=== PATIENT | female | born 1960 | race Caucasian/White ===

== ENCOUNTER 2020-06-24 17:45 | Outpatient (CLI) | payer BC, SELFPAY | END 2020-06-24 17:46 | disposition home or self-care (01) | LOC: ANHCOVIDVC 17:45 | PROVIDERS: PCP Family Medicine | DX: Z23 Encounter for immunization (principal) | CPT/HCPCS: 0001A; 91300 ==

== ENCOUNTER 2020-07-15 17:40 | Outpatient (CLI) | payer BC, SELFPAY | END 2020-07-15 17:41 | disposition home or self-care (01) | LOC: ANHCOVIDVC 17:40 | PROVIDERS: PCP Family Medicine | DX: Z23 Encounter for immunization (principal) | CPT/HCPCS: 0002A; 91300 ==

== ENCOUNTER → 2021-08-13 12:49 | Outpatient (CLI) | payer BC, SELFPAY ==
--- NOTE | ~2021-08-13 | MM_ITS ---
EXAMINATION: MM screening meera BI w mikayla HISTORY: Screening mammogram TECHNIQUE: Craniocaudal and mediolateral oblique 3-D tomosynthesis images were obtained and synthetic 2-D images were generated. CAD analysis was submitted and interpreted. COMPARISON: 05/08/2019, 04/12/2018, 03/13/2017 bilateral screening mammogram examinations BREAST PARENCHYMAL COMPOSITION: There are scattered areas of fibroglandular density. FINDINGS: There is no evidence of suspicious mass, calcification, or architectural distortion to sugg est malignancy in either breast. There has been no suspicious interval change. IMPRESSION: 1. No mammographic evidence of malignancy. 2. Recommend routine screening mammography in one year. BI-RADS Category 1: Negative Reviewed, dictated and finalized at location A.
== END ==
PROVIDERS: PCP Family Medicine; Visit Provider Obstetrics & Gynecology
DX: Z12.31 Encounter for screening mammogram for malignant neoplasm of breast (principal)
CPT/HCPCS: 77063; 77067

== ENCOUNTER 2022-06-29 11:03 | Outpatient (CLI) | payer BC, SELFPAY ==
--- NOTE | ~2022-06-29 | XR_ITS ---
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 RESULT: Lines, tubes, and devices: None. Lungs and pleura: 8 mm nodular opacity in the right upper lung. Increased right apical pleural thick ening. Emphysematous changes. Cardiomediastinal silhouette: Stable. Other: No acute osseous or upper abdominal finding. IMPRESSION: 8 mm right upper lung pulmonary nodule, recommend low-dose noncontrast CT of the chest for further ev aluation. No acute osseous findings in the left ribs. Reviewed, dictated and finalized at location K. ERCIAL LINES ACCOUNT EXECUTIVE IMPRESSION: 8 mm right upper lung pulmonary nodule, recommend low-dose noncontrast CT of th e chest for further evaluation. No acute osseous findings in the left ribs.
== END 2022-06-29 11:04 ==
LOC: MICIMG 11:05
PROVIDERS: PCP Physician Assistant Medical; Visit Provider Physician Assistant Medical
DX: R07.81 Pleurodynia (principal); R91.1 Solitary pulmonary nodule
CPT/HCPCS: 71101

== ENCOUNTER 2022-07-15 10:54 | Outpatient (CLI) | payer BC, SELFPAY ==
--- NOTE | ~2022-07-15 | CT_ITS ---
EXAMINATION: CT diagnostic chest wo con DATE: 07/15/2022 11:45 INDICATION: Right lung nodule TECHNIQUE: Computed tomography (CT) of the chest was performed without intravenous contrast. The dose -length product (DLP) was 65.66 mGy-cm. Automated exposure control and iterative reconstruction techn ique were employed. COMPARISON: 06/29/2022 FINDINGS: There is scarring in the lung apices. No CT correlate is identified for the right upper lob e nodule questioned on the recent chest radiograph. There is a 3 mm solid nodule in the left upper lo be. There is a 5 mm subsolid nodule of the left upper lobe. The lungs are free of acute opacities. No pathologically enlarged thoracic lymph nodes are identified. The heart size is normal. No pleural ef fusion or pneumothorax. There is mild thoracic spondylosis. IMPRESSION: 1. No suspicious correlate identified for the chest radiographic finding in question. 2. Small left upper lobe nodules requiring no additional follow-up. Reviewed, dictated and finalized at location B. IMPRESSION: 1. No suspicious correlate identified for the chest radiographic finding in que stion. 2. Small left upper lobe nodules requiring no additional follow-up.
== END 2022-07-15 10:55 | disposition home or self-care (01) ==
PROVIDERS: PCP Physician Assistant Medical; Visit Provider Physician Assistant Medical
DX: R91.8 Other nonspecific abnormal finding of lung field (principal)
CPT/HCPCS: 71250

== ENCOUNTER → 2023-01-17 15:18 | Outpatient (CLI) | payer BC, SELFPAY ==
--- NOTE | ~2023-01-17 | MM_ITS ---
EXAMINATION: MM screening meera BI w mikayla HISTORY: Screening mammogram TECHNIQUE: Craniocaudal and mediolateral oblique 3-D tomosynthesis images were obtained and synthetic 2-D images were generated. CAD analysis was submitted and interpreted. COMPARISON: 08/13/2021, 03/08/2020, 04/12/2018 bilateral screening mammogram examinations BREAST PARENCHYMAL COMPOSITION: There are scattered areas of fibroglandular density. FINDINGS: There is no evidence of suspicious mass, calcification, or architectural distortion to sugg est malignancy in either breast. There has been no suspicious interval change. IMPRESSION: 1. No mammographic evidence of malignancy. 2. Recommend routine screening mammography in one year. BI-RADS Category 1: Negative Reviewed, dictated and finalized at location A.
== END ==
PROVIDERS: PCP Obstetrics & Gynecology; Visit Provider Obstetrics & Gynecology
DX: Z12.31 Encounter for screening mammogram for malignant neoplasm of breast (principal)
CPT/HCPCS: 77063; 77067

== ENCOUNTER 2023-06-19 08:30 | Outpatient (CLI) | payer MEDICARE, SELFPAY ==
--- NOTE | ~2023-06-19 | US_ITS ---
Abdominal Sonogram: Real-time sonographic imaging of the abdomen was performed. Clinical History: Left upper quadrant pain Findings: The liver appears normal with no evidence of mass lesion or bile duct dilatation. Main por tremayne vein demonstrates normal direction of flow. The spleen is normal in size without evidence of foca l lesion. The gallbladder is well distended, and pressures gallbladder wall polyps measuring up to 5 mm. The common bile duct measures 4 mm. The visualized pancreas, aorta, and IVC are unremarkable. The right kidney measures 10.6 cm in length and the left kidney measures 10.4 cm. There is no hydron ephrosis or renal calculus. Impression: Gallbladder wall polyps, as above. Reviewed, dictated and finalized at location M. 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
--- NOTE | ~2023-06-19 | XR_ITS ---
Clinical Indication: Chest pain PA and lateral views of the chest: Comparison: 06/12/2018 Findings: The lungs are clear, without evidence of focal consolidation or pleural effusion. Possible COPD. Cardiomediastinal silhouette is within normal limits. Bones and soft tissues are unremarkable. Impression: Clear lungs. Possible COPD. Reviewed, dictated and finalized at location . DOWN Impression: Clear lungs. Possible COPD.
== END 2023-06-19 08:31 ==
PROVIDERS: Visit Provider Physician Assistant Medical
DX: R10.12 Left upper quadrant pain (principal); R07.81 Pleurodynia; K82.4 Cholesterolosis of gallbladder
CPT/HCPCS: 71046; 76700

== ENCOUNTER 2024-01-25 19:55 | Emergency (ER) | payer OTHER, MEDICARE, SELFPAY ==
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
[2024-01-25 20:37] VITALS: BP 178/84; PULSE 88; RESP 14; TEMP 36.4; O2SAT 100
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
== END 2024-01-26 01:29 | disposition home or self-care (01) ==
PROVIDERS: Emergency Provider Physician Assistant; PCP Family Medicine
DX: S49.92XA Unspecified injury of left shoulder and upper arm, initial encounter (principal); M62.830 Muscle spasm of back; V49.40XA Driver injured in collision with unspecified motor vehicles in traffic accident, initial encounter
CPT/HCPCS: 73030; 99283

== ENCOUNTER 2024-01-26 16:35 | Emergency (ER) | payer OTHER, SELFPAY ==
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
[2024-01-26 16:53] VITALS: BP 150/82; PULSE 82; RESP 16; TEMP 36.3; O2SAT 99
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
== END 2024-01-26 17:55 | disposition home or self-care (01) ==
PROVIDERS: Emergency Provider Nurse Practitioner; PCP Family Medicine
DX: M25.561 Pain in right knee (principal)
CPT/HCPCS: 73562; 99213; G0463

== ENCOUNTER 2024-03-08 09:21 | Outpatient (CLI) | payer OTHER, SELFPAY ==
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
== END 2024-03-08 09:22 | disposition home or self-care (01) ==
PROVIDERS: PCP Physician Assistant Medical; Visit Provider Nurse Practitioner Adult Health
DX: M17.11 Unilateral primary osteoarthritis, right knee (principal); M22.41 Chondromalacia patellae, right knee; M77.8 Other enthesopathies, not elsewhere classified; M19.012 Primary osteoarthritis, left shoulder; M75.52 Bursitis of left shoulder; S49.92XA Unspecified injury of left shoulder and upper arm, initial encounter; S89.91XA Unspecified injury of right lower leg, initial encounter; V89.2XXA Person injured in unspecified motor-vehicle accident, traffic, initial encounter
CPT/HCPCS: 73221; 73721

== ENCOUNTER 2024-05-02 15:24 | Outpatient (CLI) | payer MEDICARE, SELFPAY ==
--- NOTE | ~2024-05-02 | MM_ITS ---
EXAMINATION: MM screening meera BI w mikayla HISTORY: Screening TECHNIQUE: Craniocaudal and mediolateral oblique 3-D tomosynthesis images were obtained and synthetic 2-D images were generated. CAD analysis was submitted and interpreted. COMPARISON: Comparison to multiple prior studies sequentially, with oldest reviewed study dated 05/2015. BREAST PARENCHYMAL COMPOSITION: Not dense: There are scattered areas of fibroglandular density. FINDINGS: There is no evidence of suspicious mass, calcification, or architectural distortion to sugg est malignancy in either breast. There has been no suspicious interval change. IMPRESSION: 1. No mammographic evidence of malignancy. 2. Recommend routine screening mammography in one year. BI-RADS Category 1: Negative Reviewed, dictated and finalized at location B. 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
== END 2024-05-02 15:25 | disposition home or self-care (01) ==
PROVIDERS: PCP Physician Assistant Medical; Visit Provider Obstetrics & Gynecology
DX: Z12.31 Encounter for screening mammogram for malignant neoplasm of breast (principal)
CPT/HCPCS: 77063; 77067

== ENCOUNTER 2024-12-24 11:15 | Emergency (ER) | payer OTHER, SELFPAY ==
[2024-12-24 11:30] VITALS: BP 147/77; PULSE 89; RESP 20; TEMP 36.5; O2SAT 100
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
--- OUTSIDE RECORDS SUMMARY | 2024-12-24 11:49 | XMS_ITS | Clinical Summary ---
Author Organization [facility] Address [address] [place] [address] Care Team Providers Care Quitline Counselor Name Role Phone Ashwin Alexis MD Primary Care Provider [phone] Modesta Deal MD Unavailable [phone] Allergies Active Allergy Reactions Criticality Noted Date Comments Azithromycin Other (See comments) Low 07/25/2016 Sulfamethoxazole-Trimethoprim Rash Medium 2013 Rash Medications aspirin 81 mg tablet daily. Active hydroCHLOROthiazide (HYDRODIURIL) 25 mg tablet daily. 07/26/19 17 Active metoprolol XL (TOPROL-XL) 25 mg 24 hr tablet Take by mouth 04/04/20 16 Active clindamycin (CLEOCIN) 300 mg capsule Take 1 capsule (300 mg total) by mouth 3 (three) times a day 08/02/19 24 Active DROXIA capsule 200 mgIndications:Essen tial thrombocythemia (HCC) Take 1 capsule by mouth once daily 30 capsule 11/27/19 24 Active hydroxyurea (HYDREA) 500 mg capsuleIndications: Essential thrombocytosis TAKE 1 CAPSULE BY MOUTH ONCE DAILY AT THE SAME TIME EACH DAY 30 capsule 12/07/19 25 Active Droxia 200 mg capsuleIndications: Essential thrombocythemia (HCC) Take 1 capsule by mouth once daily 30 capsule 12/13/19 25 Active hydroxyurea (HYDREA) 500 mg capsuleIndications: Essential thrombocytosis TAKE 1 CAPSULE BY MOUTH ONCE DAILY AT THE SAME TIME EACH DAY 30 capsule 11/13/19 25 025 Discontinued Droxia 200 mg capsuleIndications: Essential thrombocythemia (HCC) Take 1 capsule by mouth once daily 30 capsule 11/15/19 25 025 Discontinued Active Problems Problem Noted Date Diagnosed Date Long-term use of high-risk medication 05/11/2018 Essential thrombocythemia 07/25/2016 Encounters Date Type Department Care Team Description 10/10/2024 1:15 PM CDT Office Visit [facility] Medicine Hematology [address] [place] [address] [address] [place] [address] Modesta Deal MD Essential thrombocythemia (HCC) 10/10/2024 12:30 PM CDT Lab [facility] [address] [place] [address] [address] [place] [address] Essential thrombocythemia (HCC) 10/10/2024 12:15 PM CDT Lab [facility] Medicine Oncology Lab [address] [place] [address] [address] [place] [address] Essential thrombocythemia (HCC) from Last 3 Months Immunizations Immunization Administration Dates Next Due Flucelvax Influenza Quad 02/29/2020 Social History Tobacco Use Types Packs/Day Years Used Date Smoking Tobacco: Never Smokeless Tobacco: Never Tobacco Cessation:Counseling Given: Not Answered Comments Unknown Sex and Gender Information Value Date Recorded Sex Assigned at Not on file 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 Gender Identity Not on file Sexual Orientation Not on file Obstetrics History Last Filed Vital Signs Vital Sign Reading Time Taken Comments Blood Pressure 145/84 10/10/2024 12:47 PM CDT Pulse 77 10/10/2024 12:47 PM CDT Temperature 36.4 C (97.5 F) 10/10/2024 12:47 PM CDT Respiratory Rate 18 10/10/2024 12:4 7 PM CDT Oxygen Saturation 98% 10/10/2024 12: 47 PM CDT Inhaled Oxygen Concentration - - Weight 49.4 kg (108 lb 12.8 oz) 10/10/2024 12:47 PM CDT PT REFUSED TO TAKE OFF SHOES Height 157.5 cm (5' 2) 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 Body Mass Index 19.9 04/11/2024 12:47 PM 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 Plan of Treatment Health Maintenance Due Date Last Done Comments Breast Cancer Screening-Mammogram 1960 Colon Cancer Screening-Colonoscopy 1960 Depression Screening 1958 Fall Risk Assessment 1958 Hepatitis C Screening 1958 Osteoporosis Screening-Bone Density Scan 1958 DTaP/Tdap/Td Vaccine (1 - Tdap) 1969 Hepatitis B Screening 1976 Pneumococcal vaccine 65+ (1 of 2 - PCV) 1977 Zoster Vaccine (1 of 2) 1977 Well Visit 65+ 2023 Influenza Vaccine (#1) 2024 02/29/2020 Procedures Procedure Name Priority Date/Time Associated Diagnosis Comments DIFFERENTIAL AUTO Routine 10/10/2024 12: 23 PM CDT Essential thrombocythemia (HCC) CBC WITH AUTO DIFFERENTIAL Routine 10/10/2024 12:23 PM CDT Essential thrombocythemia (HCC) RETICULOCYTES Routine 10/10/2024 12:23 PM CDT Essential thrombocythemia (HCC) EGFR Routine 10/10/2024 12:22 PM CDT Essential thrombocythemia (HCC) LACTATE DEHYDROGENASE Routine 10/10/2024 12:22 PM CDT Essential thrombocythemia (HCC) COMPREHENSIVE METABOLIC PANEL Routine 10/10/2024 12:22 PM CDT Essential thrombocythemia (HCC) from Last 3 Months Results * (ABNORMAL) Differential, auto (10/10/2024 12:23 PM CDT) Neutrophil abs 2.74 1.50 - 6.50 K/cumm Comment:Testing performed by : [facility], [address] [place] [phone] Lymphocyte abs 0.70(L) 0.80 - 3.30 K/cumm JT BARON Comment:Testing performed by : [facility], [address] [place] [phone] Monocyte abs 0.29 0.20 - 0.80 K/cumm CERNER [facility] Comment:Testing performed by : [facility], [address] [place] [phone] Eosinophil abs 0.02 0.00 - 0.50 K/cumm C[facility]ER [facility] Comment:Testing performed by : [facility], [address] [place] [phone] Basophil abs 0.03 0.00 - 0.10 K/cumm [facility] Comment:Testing performed by : [facility], [address] [place] [phone] Neutrophil pct 72.6 % [facility] Comment: Interpretive Data Percent cell count reference ranges are not reported, since discordance with absolute values may lead to misinterpretation of CBC data. Current Interpretive Data was last revised on 2017. Testing performed by: [facility], [address] [place] [phone] Lymphocyte pct 18.6 % [facility] Comment: Interpretive Data Percent cell count reference ranges are not reported, since discordance with absolute values may lead to misinterpretation of CBC data. Current Interpretive Data was last revised on 2017. Testing performed by: [facility], [address] [place] [phone] Monocyte pct 7.7 % [facility] Comment: Interpretive Data Percent cell count reference ranges are not reported, since discordance with absolute values may lead to misinterpretation of CBC data. Current Interpretive Data was last revised on 2017. Testing performed by: [facility], [address] [place] [phone] Eosinophil pct 0.4 % [facility] Comment: Interpretive Data Percent cell count reference ranges are not reported, since discordance with absolute values may lead to misinterpretation of CBC data. Current Interpretive Data was last revised on 2017. Testing performed by: [facility], [address] [place] [phone] Basophil pct 0.7 % [facility] Comment: Interpretive Data Percent cell count reference ranges are not reported, since discordance with absolute values may lead to misinterpretation of CBC data. Current Interpretive Data was last revised on 2017. Testing performed by: [facility], [address] [place] [address] Blood 10/10/2024 12:2 3 PM CDT 10/10/2024 12:35 PM CDT Radha Neumann DIE TRIMMER LAB BLOOD ORDERABLES Final Result JT BARON [facility] [place] [address] * (ABNORMAL) CBC with auto differential (10/10/2024 12:23 PM CDT) WBC 3.78(L) 3.80 - 9.90 K/cumm Comment:Testing performed by : [facility], [address] [place] [address] Hgb 12.3 11.9 - 15.5 g/dL CERNER BJ Comment:Testing performed by : [facility], [address] [place] [address] Hct 35.8 35.6 - 45.5 % CERNER BJ Comment:Testing performed by : [facility], [address] [place] [address] Plt 493(H) 150 - 400 K/cumm CERNER BJ Comment:Testing performed by : [facility], [address] [place] [address] MPV 7.2 6.8 - 10.4 fL CERNER BJ Comment:Testing performed by : [facility], [address] [place] [address] RBC 3.16(L) 3.90 - 5.20 M/cumm CERNER BJ Comment:Testing performed by : [facility], [address] [place] [address] MCV 113.1(H) 81.3 - 96.4 fL CERNER BJ Comment:Testing performed by : [facility], [address] [place], [place] [phone] MCH 38.8(H) 27.1 - 33.3 pg JT BARON Comment:Testing performed by : [facility], [address] [place], [place] [phone] MCHC 34.4 32.3 - 35.7 g/dL JT BARON Comment:Testing performed by : [facility], [address] [place], [place] [phone] RDW CV 13.4 11.1 - 14.9 % JT BARON Comment:Testing performed by : [facility], [address] [place], [place] [phone] NRBC abs 0.00 0.00 - 0.01 K/cumm JT BARON Comment:Testing performed by : [facility], [address] [place], [place] [phone] Blood 10/10/2024 12:2 3 PM CDT 10/10/2024 12:35 PM CDT Radha Neumann DIE TRIMMER LAB BLOOD ORDERABLES Final Result Performing Organization Address City/State/[facility] Co de Phone Number JT BARON [facility] [place] [address] * Reticulocyte Count (10/10/2024 12:23 PM CDT) Retics, absolute 35 20 - 100 K/cumm Comment:Testing performed by : [facility], [address] [place], [place] [id number] Retics 1.1 0.5 - 1.8 % JT BARON Comment:Testing performed by : [facility], [address] [place], [place] [id number] Blood 10/10/2024 12:2 3 PM CDT 10/10/2024 12:35 PM CDT Radha Neumann DIE TRIMMER LAB BLOOD ORDERABLES Final Result Performing Organization Address [facility] de Phone Number [facility] [place] [address] * eGFR (10/10/2024 12:22 PM CDT) eGFR 78 >=60 mL/min/1. 73 m2 Comment: Interpretive Data Reference Interval Normal >/= 90 mL/min/1.73m2 Mildly decreased* 60 - 89 mL/min/1.73m2 Mildly to moderately decreased 45 - 59 mL/min/1.73m2 Moderately to severely decreased 30 - 44 mL/min/1.73m2 Severely decreased 15 - 29 mL/min/1.73m2 Kidney Failure < 15 mL/min/1.73m2 *Relative to young adult level Estimated glomerular filtration rate is determined by the 2020 CKD-EPI equation recommended by the National Kidney Foundation (A Unifying Approach to GFR Estimation: Recommendations of the NKF-ASK Task Force on Reassessing the Inclusion of Race in Diagnosing Kidney Disease, JASN 2020). The CKD-EPI equation should not be used for patients with unstable renal function and has not been validated in children and those over 70. Current interpretive data was last reviewed 2021. Blood 10/10/2024 12:2 2 PM CDT 10/10/2024 12:37 PM CDT Radha Neumann NP LAB BLOOD ORDERABLES Final Result Performing Organization Address [facility] de Phone Number [facility] [place] [address] * Lactate dehydrogenase (LD) (10/10/2024 12:22 PM CDT) Lactate dehydrogenase (LDH) 212 100 - 250 Units/L Blood 10/10/2024 12:2 2 PM CDT 10/10/2024 12:37 PM CDT Radha Neumann DIE TRIMMER LAB BLOOD ORDERABLES Final Result JT BARON [facility] [place] [address] * Comprehensive metabolic panel (10/10/2024 12:22 PM CDT) Sodium 139 135 - 145 mmol/L Potassium, pl 3.6 3.3 - 4.9 mmol/L [facility] Chloride 102 97 - 110 mmol/L [facility] CO2 28 22 - 32 mmol/L [facility] Anion gap 9 2 - 15 mmol/L [facility] BUN 10 6 - 25 mg/dL [facility] Creatinine 0.83 0.60 - 1.10 mg/dL [facility] Glucose 86 70 - 199 mg/dL [facility] Comment: Interpretive Data Fasting glucose >/= 126 mg/dl is diagnostic for diabetes. Fasting is defined as no caloric intake for at least 8 hours. Fasting glucose between 100 mg/dl to 125 mg/dl is diagnostic of prediabetes. In a patient with classic symptoms of hyperglycemia or hyperglycemic crisis, a random glucose >/= 200 mg/dl is diagnostic for diabetes. In the absence of unequivocal hyperglycemia, results should be confirmed by repeat testing. The classification and Diagnosis of Diabetes Diabetes Care 2021; 46: S19-S40. Current interpretive data was last revised 2022. Calcium 9.2 8.5 - 10.3 mg/dL [facility] Bilirubin, total 0.4 0.1 - 1.2 mg/dL [facility] Protein, pl 7.0 6.5 - 8.5 g/dL [facility] Albumin 4.3 3.5 - 5.0 g/dL [facility] Alk phos 69 40 - 130 Units/L [facility] ALT 10 7 - 45 Units/L [facility] AST 24 10 - 45 Units/L [facility] Blood 10/10/2024 12:2 2 PM CDT 10/10/2024 12:37 PM CDT Radha Neumann DIE TRIMMER LAB BLOOD ORDERABLES Final Result [facility] [place] [address] from Last 3 Months Insurance [facility] Member Subscriber Plan / Payer (Ef fective 2017-Present) Name:Ronni Frausto Relation to Subscriber:Self Name:RONNI FRAUSTO Payer ID:[id number] (NAIC) Type:[facility] Address: [address] ANTH ACCESS [facility] [employer] [employer] Care Teams Quitline Counselor Relationship Specialty Start Date End Date Ashwin Alexis MD PCP - General Family Medicine 05/15/18 Modesta Deal MD [address] [place] [address] Medical Oncologist/Medical Records Supervisor Hematology 06/21/20
--- OUTSIDE RECORDS SUMMARY | 2024-12-24 11:49 | XMS_ITS | Encounter Summary ---
Author Organization [facility] Address [address] [place] [address] Phone Care Team Providers Care Professional Driver Name Role Phone Ashwin Alexis MD Primary Care Provider [phone] Modesta Deal MD Unavailable [phone] Encounter Details Date Type Department Care Team (Latest Contact Info) Description 05/04/2022 Orders Only [facility] Scanning, Provider Social History Tobacco Use Types Packs/Day Years Used Date Smoking Tobacco: Never Smokeless Tobacco: Never Comments Unknown Sex and Gender Information Value Date Recorded Sex Assigned at Not on file 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 Gender Identity Not on file Sexual Orientation Not on file documented as of this encounter Plan of Treatment Not on file documented as of this encounter Procedures Procedure Name Priority Date/Time Associated Diagnosis Comments SCAN - LABS 05/04/2022 documented in this encounter Results * SCAN - LABS (05/04/2022) us Provider Scanning Final Result documented in this encounter Visit Diagnoses Not on filedocumented in this encounter Care Teams Professional Driver Relationship Specialty Start Date End Date Ashwin Alexis MD PCP - General Family Medicine 05/15/18 Modesta Deal MD [address] [place] [address] Medical Oncologist/Firer Boiler Hematology 06/21/20 documented as of this encounter
== END 2024-12-24 12:02 | disposition short-term general hospital (02) ==
PROVIDERS: PCP Family Medicine
DX: R42 Dizziness and giddiness (principal); M54.2 Cervicalgia; R51.9 Headache, unspecified; V63.6XXA Passenger in heavy transport vehicle injured in collision with car, pick-up truck or van in traffic accident, initial encounter
CPT/HCPCS: 99212; G0463

== ENCOUNTER 2024-12-24 12:52 | Emergency (ER) | payer OTHER, MEDICARE, SELFPAY ==
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
[2024-12-24 12:53] VITALS: BP 150/61; PULSE 100; RESP 18; TEMP 37.3; O2SAT 97
--- OUTSIDE RECORDS SUMMARY | 2024-12-24 13:02 | XMS_ITS | Encounter Summary ---
Author Organization [facility] School of [facility] Address [address] [place] [address] Phone Care Team Providers Care Movie Editor Name Role Phone Ashwin Alexis MD Primary Care Provider [phone] Modesta Deal MD Unavailable [phone] Encounter Details Date Type Department Care Team (Latest Contact Info) Description 05/04/2022 Orders Only [facility] Scanning, Provider Social History Tobacco Use Types Packs/Day Years Used Date Smoking Tobacco: Never Smokeless Tobacco: Never Comments Unknown Sex and Gender Information Value Date Recorded Sex Assigned at Not on file 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
--- OUTSIDE RECORDS SUMMARY | 2024-12-24 13:02 | XMS_ITS | Clinical Summary ---
Author Organization [facility] Address [address] [place] [address] Care Team Providers Care Waste Removalist Name Role Phone Ashwin Alexis MD Primary Care Provider [phone] Modesta Deal MD Unavailable [phone] Allergies Active Allergy Reactions Criticality Noted Date [...] Description 10/10/2024 1:15 PM CDT Office Visit [facility] Medicine Hematology [address] [place] [address] [address] [place] [address] Modesta Deal MD Essential thrombocythemia (HCC) 10/10/2024 12:30 PM CDT Lab [facility] Cancer [place] - Lab Collection [address] [place] [address] [address] [place] [address] Essential thrombocythemia (HCC) 10/10/2024 12:15 PM CDT Lab [facility] Medicine Oncology Lab [address] [place] [address] [address] [place] [address] Essential thrombocythemia (HCC) from Last 3 Months Immunizations Immunization Administration Dates Next Due Flucelvax Influenza Quad 02/29/2020 Social History Tobacco Use Types Packs/Day Years Used Date Smoking Tobacco: Never Smokeless Tobacco: Never Tobacco Cessation:Counseling Given: Not Answered Comments Unknown Sex and Gender Information Value Date Recorded Sex Assigned at Not on file Legal Sex Female 4:06 AM JUDICIAL REPORTER Gender Identity Not on file Sexual Orientation [...] cm (5' 2) 04/11/2024 12:4 7 PM JUDICIAL REPORTER Body Mass Index 19.9 04/11/2024 12:47 PM JUDICIAL REPORTER Plan of Treatment Health Maintenance Due Date [...] - 6.50 K/cumm Comment:Testing performed by : [facility], [address] [place] [phone] Lymphocyte abs 0.70(L) 0.80 - 3.30 K/cumm JT BARON Comment:Testing performed by : [facility], [address] [place] [phone] Monocyte abs 0.29 0.20 - 0.80 K/cumm C[facility]ER [facility] Comment:Testing performed by : [facility], [address] [place] [phone] Eosinophil abs 0.02 0.00 - 0.50 K/cumm [facility] Comment:Testing performed by : [facility], [address] [place] [phone] Basophil abs 0.03 0.00 - 0.10 K/cumm [facility] Comment:Testing performed by : [facility], [address] [place] [phone] Neutrophil pct 72.6 % [facility] Comment: Interpretive Data Percent cell count reference ranges are not reported, since discordance with absolute values may lead to misinterpretation of CBC data. Current Interpretive Data was last revised on 2017. Testing performed by: [facility], [address] [place] [phone] Lymphocyte pct 18.6 % [facility] Comment: Interpretive Data Percent cell count reference ranges are not reported, since discordance with absolute values may lead to misinterpretation of CBC data. Current Interpretive Data was last revised on 2017. Testing performed by: [facility], [address] [place] [phone] Monocyte pct 7.7 % [facility] Comment: Interpretive Data Percent cell count reference ranges are not reported, since discordance with absolute values may lead to misinterpretation of CBC data. Current Interpretive Data was last revised on 2017. Testing performed by: [facility], [address] [place] [phone] Eosinophil pct 0.4 % [facility] Comment: Interpretive Data Percent cell count reference ranges are not reported, since discordance with absolute values may lead to misinterpretation of CBC data. Current Interpretive Data was last revised on 2017. Testing performed by: [facility], [address] [place] [phone] Basophil pct 0.7 % [facility] Comment: Interpretive Data Percent cell count reference ranges are not reported, since discordance with absolute values may lead to misinterpretation of CBC data. Current Interpretive Data was last revised on 2017. Testing performed by: [facility], [address] [place] [address] Blood 10/10/2024 12:2 3 PM CDT 10/10/2024 12:35 PM CDT Radha Neumann OFFICE COORDINATOR RECEPTIONIST LAB BLOOD ORDERABLES Final Result JT BARON [facility] [place] [address] * (ABNORMAL) CBC with auto differential (10/10/2024 12:23 PM CDT) WBC 3.78(L) 3.80 - 9.90 K/cumm Comment:Testing performed by : [facility], [address] [place] [address] Hgb 12.3 11.9 - 15.5 g/dL CERNER BJ Comment:Testing performed by : [facility], [address] [place] [address] Hct 35.8 35.6 - 45.5 % CERNER BJ Comment:Testing performed by : [facility], [address] [place] [address] Plt 493(H) 150 - 400 K/cumm CERNER BJ Comment:Testing performed by : [facility], [address] [place] [address] MPV 7.2 6.8 - 10.4 fL CERNER BJ Comment:Testing performed by : [facility], [address] [place] [address] RBC 3.16(L) 3.90 - 5.20 M/cumm CERNER BJ Comment:Testing performed by : [facility], [address] [place] [address] MCV 113.1(H) 81.3 - 96.4 fL CERNER BJ Comment:Testing performed by : [facility], [address] [place], [place] [phone] MCH 38.8(H) 27.1 - 33.3 pg JT BARON Comment:Testing performed by : [facility], [address] [place], [place] [phone] MCHC 34.4 32.3 - 35.7 g/dL JT BARON Comment:Testing performed by : [facility], [address] [place], [place] [phone] RDW CV 13.4 11.1 - 14.9 % JT BARON Comment:Testing performed by : [facility], [address] [place], [place] [phone] NRBC abs 0.00 0.00 - 0.01 K/cumm JT BARON Comment:Testing performed by : [facility], [address] [place], [place] [phone] Blood 10/10/2024 12:2 3 PM CDT 10/10/2024 12:35 PM CDT Radha Neumann OFFICE COORDINATOR RECEPTIONIST LAB BLOOD ORDERABLES Final Result Performing Organization Address City/State/[facility] Co de Phone Number JT BARON [facility] [place] [address] * Reticulocyte Count (10/10/2024 12:23 PM CDT) Retics, absolute 35 20 - 100 K/cumm Comment:Testing performed by : [facility], [address] [place], [place] [phone] Retics 1.1 0.5 - 1.8 % JT BARON Comment:Testing performed by : [facility], [address] [place], [place] [phone] Blood 10/10/2024 12:2 3 PM CDT 10/10/2024 12:35 PM CDT Radha Neumann OFFICE COORDINATOR RECEPTIONIST LAB BLOOD ORDERABLES Final Result Performing Organization Address [facility] de [facility] Number [facility] [place] [address] * eGFR (10/10/2024 12:22 PM CDT) eGFR [...] BLOOD ORDERABLES Final Result Performing Organization Address [facility] de Phone Number [facility] [place] [address] * Lactate dehydrogenase (LD) (10/10/2024 12:22 PM CDT) Lactate dehydrogenase (LDH) 212 100 - 250 Units/L Blood 10/10/2024 12:2 2 PM CDT 10/10/2024 12:37 PM CDT Radha Neumann OFFICE COORDINATOR RECEPTIONIST LAB BLOOD ORDERABLES Final Result JT BARON [facility] [place] [address] * Comprehensive metabolic panel (10/10/2024 12:22 PM CDT) Sodium 139 135 - 145 mmol/L Potassium, pl 3.6 3.3 - 4.9 mmol/L [facility] Chloride 102 97 - 110 mmol/L [facility] CO2 28 22 - 32 mmol/L [facility] Anion gap 9 2 - 15 mmol/L [facility] BUN 10 6 - 25 mg/dL [facility] Creatinine 0.83 0.60 - 1.10 mg/dL [facility] Glucose 86 70 - 199 mg/dL [facility] Comment: Interpretive Data Fasting glucose >/= 126 [...] 2022. Calcium 9.2 8.5 - 10.3 mg/dL [facility] Bilirubin, total 0.4 0.1 - 1.2 mg/dL [facility] Protein, pl 7.0 6.5 - 8.5 g/dL [facility] Albumin 4.3 3.5 - 5.0 g/dL [facility] Alk phos 69 40 - 130 Units/L [facility] ALT 10 7 - 45 Units/L [facility] AST 24 10 - 45 Units/L [facility] Blood 10/10/2024 12:2 2 PM CDT 10/10/2024 12:37 PM CDT Radha Neumann OFFICE COORDINATOR RECEPTIONIST LAB BLOOD ORDERABLES Final Result JT [facility] [place] [address] from Last 3 Months Insurance [facility] MEDICARE ADVANTAGE [facility] Member Subscriber Plan / Payer (Ef fective 2017-Present) Name:Ronni Frausto Relation to Subscriber:Self Name:RONNI FRAUSTO Payer ID:[id number] (NAIC) Type:[facility] Address: [address] ANTH ACCESS [facility] MEDICARE AD[facility]ANT[facility] Address: [address] [address] [place] [address] Care Teams Waste Removalist Relationship Specialty Start Date End Date Ashwin Alexis MD PCP - General Family Medicine 05/15/18 Modesta Deal MD [address] [place] [address] Medical Oncologist/Loans Officer Hematology 06/21/20
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
[2024-12-24] MEDS: ACETAMINOPHEN 500 MG TABLET 1000 MG PO (15:36)
--- OUTSIDE RECORDS SUMMARY | 2024-12-24 15:50 | XMS_ITS | Encounter Summary ---
Author Organization [facility] of [facility] Address [address] [place] [address] Phone Care Team Providers Care Night Auditor Name Role Phone Ahswin Alexis MD Primary Care Provider [phone] Modesta Deal MD Unavailable [phone] Encounter Details Date Type Department Care Team (Latest Contact Info) Description 05/04/2022 Orders Only [facility] Scanning, Provider Social History Tobacco Use Types Packs/Day Years Used Date Smoking Tobacco: Never Smokeless Tobacco: Never Comments Unknown Sex and Gender Information Value Date Recorded Sex Assigned at Not on file Legal Sex Female 4:06 AM MECHANICAL INTERN Gender Identity Not on file Sexual Orientation [...] on filedocumented in this encounter Care Teams Night Auditor Relationship Specialty Start Date End Date Ashwin Alexis MD PCP - General Family Medicine 05/15/18 Modesta Deal MD [address] [place] [address] Medical Oncologist/Weatherization Coordinator Hematology 06/21/20 documented as of this encounter
--- OUTSIDE RECORDS SUMMARY | 2024-12-24 15:50 | XMS_ITS | Clinical Summary ---
Author Organization [facility] Address [address] [place] [address] Care Team Providers Care Water Service Dispatcher Name Role Phone Ashwin Alexis MD Primary Care Provider [phone] Modesta Deal MD Unavailable [phone] Allergies Active Allergy Reactions Criticality Noted Date [...] Description 10/10/2024 1:15 PM CDT Office Visit [facility] Medicine Hematology [address] [place] [address] [address] [place] [address] Modesta Deal MD Essential thrombocythemia (HCC) 10/10/2024 12:30 PM CDT Lab [facility] Cancer [place] - Lab Collection [address] [place] [address] 6 [place] [address] Essential thrombocythemia (HCC) 10/10/2024 12:15 PM CDT Lab [facility] Medicine Oncology Lab [address] [place] [address] 6 [place] [address] Essential thrombocythemia (HCC) from Last 3 Months Immunizations Immunization Administration Dates Next Due Flucelvax Influenza Quad 02/29/2020 Social History Tobacco Use Types Packs/Day Years Used Date Smoking Tobacco: Never Smokeless Tobacco: Never Tobacco Cessation:Counseling Given: Not Answered Comments Unknown Sex and Gender Information Value Date Recorded Sex Assigned at Not on file Legal Sex Female 4:06 AM ENGLISH PROFESSOR Gender Identity Not on file Sexual Orientation [...] cm (5' 2) 04/11/2024 12:4 7 PM ENGLISH PROFESSOR Body Mass Index 19.9 04/11/2024 12:47 PM ENGLISH PROFESSOR Plan of Treatment Health Maintenance Due Date [...] - 6.50 K/cumm Comment:Testing performed by : [facility]e [facility], [address] [place] [phone] Lymphocyte abs 0.70(L) 0.80 - 3.30 K/cumm JT BARON Comment:Testing performed by : [facility], [address] [place] [phone] Monocyte abs 0.29 0.20 - 0.80 K/cumm [facility] Comment:Testing performed by : [facility], [address] [place] [phone] Eosinophil abs 0.02 0.00 - 0.50 K/cumm [facility] Comment:Testing performed by : [facility], [address] [place] [phone] Basophil abs 0.03 0.00 - 0.10 K/cumm [facility] Comment:Testing performed by : [facility], [address] [place] [phone] Neutrophil pct 72.6 % [facility] Comment: Interpretive Data Percent cell count reference ranges are not reported, since discordance with absolute values may lead to misinterpretation of CBC data. Current Interpretive Data was last revised on 2017. Testing performed by: [facility], [address] [place] [phone] Lymphocyte pct 18.6 % [facility] Comment: Interpretive Data Percent cell count reference ranges are not reported, since discordance with absolute values may lead to misinterpretation of CBC data. Current Interpretive Data was last revised on 2017. Testing performed by: [facility], [address] [place] [phone] Monocyte pct 7.7 % [facility] Comment: Interpretive Data Percent cell count reference ranges are not reported, since discordance with absolute values may lead to misinterpretation of CBC data. Current Interpretive Data was last revised on 2017. Testing performed by: [facility], [address] [place] [phone] Eosinophil pct 0.4 % [facility] Comment: Interpretive Data Percent cell count reference ranges are not reported, since discordance with absolute values may lead to misinterpretation of CBC data. Current Interpretive Data was last revised on 2017. Testing performed by: [facility], [address] [place] [phone] Basophil pct 0.7 % [facility] Comment: Interpretive Data Percent cell count reference ranges are not reported, since discordance with absolute values may lead to misinterpretation of CBC data. Current Interpretive Data was last revised on 2017. Testing performed by: [facility], [address] [place] [address] Blood 10/10/2024 12:2 3 PM CDT 10/10/2024 12:35 PM CDT Radha Neumann RN CCU LAB BLOOD ORDERABLES Final Result JT BARON [facility] [place] [address] * (ABNORMAL) CBC with auto differential (10/10/2024 12:23 PM CDT) WBC 3.78(L) 3.80 - 9.90 K/cumm Comment:Testing performed by : [facility], [address] [place] [address] Hgb 12.3 11.9 - 15.5 g/dL CERNER [facility]J Comment:Testing performed by : [facility], [address] [place] [address] Hct 35.8 35.6 - 45.5 % CERNER BJ Comment:Testing performed by : [facility], [address] [place] [address] Plt 493(H) 150 - 400 K/cumm CERNER BJ Comment:Testing performed by : [facility], [address] [place] [address] MPV 7.2 6.8 - 10.4 fL CERNER BJ Comment:Testing performed by : [facility], [address] [place] [address] RBC 3.16(L) 3.90 - 5.20 M/cumm CERNER BJ Comment:Testing performed by : [facility], [address] [place] [address] MCV 113.1(H) 81.3 - 96.4 fL CERNER BJ Comment:Testing performed by : [facility], [address] [place], [place] [phone] MCH 38.8(H) 27.1 - 33.3 pg JT BARON Comment:Testing performed by : [facility], [address] [place], [place] [phone] MCHC 34.4 32.3 - 35.7 g/dL JT BARON Comment:Testing performed by : [facility], [address] [place], [place] [phone] RDW CV 13.4 11.1 - 14.9 % JT BARON Comment:Testing performed by : [facility], [address] [place], [place] [phone] NRBC abs 0.00 0.00 - 0.01 K/cumm JT BARON Comment:Testing performed by : [facility], [address] [place], [place] [phone] Blood 10/10/2024 12:2 3 PM CDT 10/10/2024 12:35 PM CDT Radha Neumann RN CCU LAB BLOOD ORDERABLES Final Result Performing Organization Address City/State/[facility] Co de Phone Number JT BARON [facility] [place] [address] * Reticulocyte Count (10/10/2024 12:23 PM CDT) Retics, absolute 35 20 - 100 K/cumm Comment:Testing performed by : [facility], [address] [place], [place] [phone] Retics 1.1 0.5 - 1.8 % JT BARON Comment:Testing performed by : [facility], [address] [place], [place] [phone] Blood 10/10/2024 12:2 3 PM CDT 10/10/2024 12:35 PM CDT Radha Neumann RN CCU LAB BLOOD ORDERABLES Final Result Performing Organization Address [facility] de Phone Number [facility] [place] [address] * eGFR (10/10/2024 12:22 PM CDT) eGFR [...] BLOOD ORDERABLES Final Result Performing Organization Address [facility] de Phone Number [facility] [place] [address] * Lactate dehydrogenase (LD) (10/10/2024 12:22 PM CDT) Lactate dehydrogenase (LDH) 212 100 - 250 Units/L Blood 10/10/2024 12:2 2 PM CDT 10/10/2024 12:37 PM CDT Radha Neumann RN CCU LAB BLOOD ORDERABLES Final Result JT BARON [facility] [place] [address] * Comprehensive metabolic panel (10/10/2024 12:22 PM [...] CDT 10/10/2024 12:37 PM CDT Radha Neumann RN CCU LAB BLOOD ORDERABLES Final Result [facility] [place] [address] from Last 3 Months Insurance [facility] MEDICARE ADVANTAGE [facility] Address[facility] [address] [employer] [facility] Address: [address] [place] [address] [facility] MEDICARE AD[facility]ANTAGE [facility] Address: [address] [address] [place] [address] Care Teams Water Service Dispatcher Relationship Specialty Start Date End Date Ashwin Alexis MD PCP - General Family Medicine 05/15/18 Modesta Deal MD [address] [place] [address] Medical Oncologist/Dietary Director Hematology 06/21/20
[2024-12-24 16:10] VITALS: BP 150/119; PULSE 84; RESP 18; TEMP 36.8; O2SAT 99
== END 2024-12-24 16:10 | disposition home or self-care (01) ==
LOC: ANHED 15:48
PROVIDERS: Emergency Provider Emergency Medicine; PCP Family Medicine
DX: S89.91XA Unspecified injury of right lower leg, initial encounter (principal); V89.2XXA Person injured in unspecified motor-vehicle accident, traffic, initial encounter; Z79.82 Long term (current) use of aspirin; Z82.49 Family history of ischemic heart disease and other diseases of the circulatory system
CPT/HCPCS: 70450; 72100; 72125; 73030; 73564; 99284; A9270

== ENCOUNTER 2024-12-26 13:57 | Outpatient (CLI) | payer OTHER, MEDICARE, SELFPAY ==
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
--- OUTSIDE RECORDS SUMMARY | 2024-12-26 14:16 | XMS_ITS | Encounter Summary ---
Author Organization [facility] Address [address] [facility] [place] [address] Phone Care Team Providers Care Reel And Rewinder Operator Name Role Phone Ashwin Alexis MD Primary Care Provider [phone] Modesta Deal MD Unavailable [phone] Encounter Details Date Type Department Care Team (Latest Contact Info) Description 05/04/2022 Orders Only [facility] Scanning, Provider Social History Tobacco Use Types Packs/Day Years Used Date Smoking Tobacco: Never Smokeless Tobacco: Never Comments Unknown Sex and Gender Information Value Date Recorded Sex Assigned at Not on file Legal Sex Female 4:06 AM WELL HEAD PUMPER Gender Identity Not on file Sexual Orientation [...] on filedocumented in this encounter Care Teams Reel And Rewinder Operator Relationship Specialty Start Date End Date Ashwin Alexis MD PCP - General Family Medicine 05/15/18 Modesta Deal MD [address] [place] [address] Medical Oncologist/Sheet Metal Journeyman Hematology 06/21/20 documented as of this encounter
--- OUTSIDE RECORDS SUMMARY | 2024-12-26 14:16 | XMS_ITS | Clinical Summary ---
Author Organization [facility] Address [address] [place] [address] Phone Care Team Providers Care Athletic Gear Custodian Name Role Phone Unavailable Primary Care Provider Unavailabl e Medications metoprolol succinate XL (TOPROL-XL) 25 MG 24 hr tablet 1 tablet (25 mg) orally daily 0 04/04/2016 Active atorvastatin (LIPITOR) 20 MG tablet 1 tablet (20 mg) orally daily 0 04/04/2016 Active aspirin (ASPIR) 81 MG EC tablet 1 tablet (81 mg) orally daily 0 04/04/2016 Active Active Problems Problem Noted Date Diagnosed Date Hyperkalemia 04/04/2016 Urinary tract infection 04/04/2016 Essential (primary) hypertension 04/04/2016 Other hyperlipidemia 04/04/2016 Overview (07/07/2018): Converted unresolved ICD9, potential mismatch. Family History Medical History Relation Comments Hypertensive disorder Father Hypertensive disorder Mother Hypertensive disorder Sibling Kidney disease Neg Hx Kidney stone Neg Hx Relation Status Comments Father Mother Sibling Social History Tobacco Use Types Packs/Day Years Used Date Smoking Tobacco: Former Alcohol Use Standard Drinks/Week Comments No 0 (1 standard drink = 0.6 oz pur e alcohol) Comments Unknown Sex and Gender Information Value Date Recorded Sex Assigned at Not on file Legal Sex Female 9:23 AM MST Gender Identity Not on file Sexual Orientation Not on file Last Filed Vital Signs Vital Sign Reading Time Taken Comments Blood Pressure 158/84 04/04/2016 12:01 AM PREPARATORY TECHNICIAN Pulse 72 04/04/2016 12:01 AM PREPARATORY TECHNICIAN Temperature 37.5 C (99.5 F) 04/04/2016 12:01 AM PREPARATORY TECHNICIAN Respiratory Rate - - Oxygen Saturation - - Inhaled Oxygen Concentration - - Weight 51.7 kg (114 lb) 04/04/2016 12:01 AM PREPARATORY TECHNICIAN Height 157.5 cm (5' 2) 04/04/2016 12:01 AM PREPARATORY TECHNICIAN Body Mass Index 20.85 04/04/2016 12:01 AM PREPARATORY TECHNICIAN Plan of Treatment Not on file
--- OUTSIDE RECORDS SUMMARY | 2024-12-26 14:16 | XMS_ITS | Clinical Summary ---
Author Organization [facility] Address [address] [place] [address] Care Team Providers Care Fire Inspector Name Role Phone Ashwin Alexis MD Primary Care Provider [phone] Modesta Deal MD Unavailable [phone] Allergies Active Allergy Reactions Criticality Noted Date [...] Description 10/10/2024 1:15 PM CDT Office Visit [facility] Medicine Hematology [address] [place] [address] [address] [place] [address] Modesta Deal MD Essential thrombocythemia (HCC) 10/10/2024 12:30 PM CDT Lab [facility] Cancer [place] - Lab Collection [address] [place] [address] [address] [place] [address] Essential thrombocythemia (HCC) 10/10/2024 12:15 PM CDT Lab [facility] Medicine Oncology Lab [address] [place] [address] 6 [place] [address] Essential thrombocythemia (HCC) from Last 3 Months Immunizations Immunization Administration Dates Next Due Flucelvax Influenza Quad 02/29/2020 Social History Tobacco Use Types Packs/Day Years Used Date Smoking Tobacco: Never Smokeless Tobacco: Never Tobacco Cessation:Counseling Given: Not Answered Comments Unknown Sex and Gender Information Value Date Recorded Sex Assigned at Not on file Legal Sex Female 4:06 AM PELOTA MAKER Gender Identity Not on file Sexual Orientation [...] cm (5' 2) 04/11/2024 12:4 7 PM PELOTA MAKER Body Mass Index 19.9 04/11/2024 12:47 PM PELOTA MAKER Plan of Treatment Health Maintenance Due Date [...] - 6.50 K/cumm Comment:Testing performed by : [facility], [address] [place] [phone] Lymphocyte abs 0.70(L) 0.80 - 3.30 K/cumm JT BARON Comment:Testing performed by : [facility], [address] [place] [phone] Monocyte abs 0.29 0.20 - 0.80 K/cumm CERNER [facility] Comment:Testing performed by : [facility], [address] [place] [phone] Eosinophil abs 0.02 0.00 - 0.50 K/cumm C[facility]ER [facility] Comment:Testing performed by : [facility], [address] [place] [phone] Basophil abs 0.03 0.00 - 0.10 K/cumm C[facility] Comment:Testing performed by : [facility], [address] [place] [phone] Neutrophil pct 72.6 % [facility] Comment: Interpretive Data Percent cell count reference ranges are not reported, since discordance with absolute values may lead to misinterpretation of CBC data. Current Interpretive Data was last revised on 2017. Testing performed by: [facility], [address] [place] [phone] Lymphocyte pct 18.6 % [facility] Comment: Interpretive Data Percent cell count reference ranges are not reported, since discordance with absolute values may lead to misinterpretation of CBC data. Current Interpretive Data was last revised on 2017. Testing performed by: [facility], [address] [place] [phone] Monocyte pct 7.7 % [facility] Comment: Interpretive Data Percent cell count reference ranges are not reported, since discordance with absolute values may lead to misinterpretation of CBC data. Current Interpretive Data was last revised on 2017. Testing performed by: [facility], [address] [place] [phone] Eosinophil pct 0.4 % [facility] Comment: Interpretive Data Percent cell count reference ranges are not reported, since discordance with absolute values may lead to misinterpretation of CBC data. Current Interpretive Data was last revised on 2017. Testing performed by: [facility], [address] [place] [phone] Basophil pct 0.7 % [facility] Comment: Interpretive Data Percent cell count reference ranges are not reported, since discordance with absolute values may lead to misinterpretation of CBC data. Current Interpretive Data was last revised on 2017. Testing performed by: [facility], [address] [place] [address] Blood 10/10/2024 12:2 3 PM CDT 10/10/2024 12:35 PM CDT Radha Neumann CLOTH DYEING RANGE TENDER LAB BLOOD ORDERABLES Final Result JT BARON [facility] Department [place] [address] * (ABNORMAL) CBC with auto differential (10/10/2024 12:23 PM CDT) WBC 3.78(L) 3.80 - 9.90 K/cumm Comment:Testing performed by : [facility], [address] [place] [address] Hgb 12.3 11.9 - 15.5 g/dL CERNER BJ Comment:Testing performed by : [facility], [address] [place] [address] Hct 35.8 35.6 - 45.5 % CERNER BJ Comment:Testing performed by : [facility], [address] [place] [address] Plt 493(H) 150 - 400 K/cumm CERNER BJ Comment:Testing performed by : [facility], [address] [place] [address] MPV 7.2 6.8 - 10.4 fL CERNER BJ Comment:Testing performed by : [facility], [address] [place] [address] RBC 3.16(L) 3.90 - 5.20 M/cumm CERNER BJ Comment:Testing performed by : [facility], [address] [place] [address] MCV 113.1(H) 81.3 - 96.4 fL CERNER BJ Comment:Testing performed by : [facility], [address] [place], [place] [phone] MCH 38.8(H) 27.1 - 33.3 pg JT BARON Comment:Testing performed by : [facility], [address] [place], [place] [phone] MCHC 34.4 32.3 - 35.7 g/dL JT BARON Comment:Testing performed by : [facility], [address] [place], [place] [phone] RDW CV 13.4 11.1 - 14.9 % JT BARON Comment:Testing performed by : [facility], [address] [place], [place] [phone] NRBC abs 0.00 0.00 - 0.01 K/cumm JT BARON Comment:Testing performed by : [facility], [address] [place], [place] [phone] Blood 10/10/2024 12:2 3 PM CDT 10/10/2024 12:35 PM CDT Radha Neumann CLOTH DYEING RANGE TENDER LAB BLOOD ORDERABLES Final Result Performing Organization Address City/State/[facility] Co de Phone Number JT BARON [facility] Department [place] [address] * Reticulocyte Count (10/10/2024 12:23 PM CDT) Retics, absolute 35 20 - 100 K/cumm Comment:Testing performed by : [facility], [address] [place], [place] [phone] Retics 1.1 0.5 - 1.8 % JT BARON Comment:Testing performed by : [facility], [address] [place], [place] [phone] Blood 10/10/2024 12:2 3 PM CDT 10/10/2024 12:35 PM CDT Radha Neumann CLOTH DYEING RANGE TENDER LAB BLOOD ORDERABLES Final Result Performing Organization Address [facility] de [facility] Number [facility] [place] [address] * eGFR (10/10/2024 12:22 PM CDT) eGFR [...] BLOOD ORDERABLES Final Result Performing Organization Address [facility] de Phone Number [facility] [place] [address] * Lactate dehydrogenase (LD) (10/10/2024 12:22 PM CDT) Lactate dehydrogenase (LDH) 212 100 - 250 Units/L Blood 10/10/2024 12:2 2 PM CDT 10/10/2024 12:37 PM CDT Radha Neumann CLOTH DYEING RANGE TENDER LAB BLOOD ORDERABLES Final Result JT BARON [facility] Department [place] [address] * Comprehensive metabolic panel (10/10/2024 12:22 PM CDT) Sodium 139 135 - 145 mmol/L Potassium, pl 3.6 3.3 - 4.9 mmol/L [facility] Chloride 102 97 - 110 mmol/L [facility] CO2 28 22 - 32 mmol/L [facility] Anion gap 9 2 - 15 mmol/L [facility] BUN 10 6 - 25 mg/dL [facility] Creatinine 0.83 0.60 - 1.10 mg/dL [facility] Glucose 86 70 - 199 mg/dL [facility] Comment: Interpretive Data Fasting glucose >/= 126 [...] 2022. Calcium 9.2 8.5 - 10.3 mg/dL [facility] Bilirubin, total 0.4 0.1 - 1.2 mg/dL [facility] Protein, pl 7.0 6.5 - 8.5 g/dL [facility] Albumin 4.3 3.5 - 5.0 g/dL [facility] Alk phos 69 40 - 130 Units/L [facility] ALT 10 7 - 45 Units/L [facility] AST 24 10 - 45 Units/L [facility] Blood 10/10/2024 12:2 2 PM CDT 10/10/2024 12:37 PM CDT Radha Neumann CLOTH DYEING RANGE TENDER LAB BLOOD ORDERABLES Final Result [facility] Department [place] [address] from Last [address] [facility] MEDICARE ADVANTAGE [facility] Member Subscriber Plan / Payer (Ef fective 2017-Present) Name:Ronni Frausto Relation to Subscriber:Self Name:RONNI FRAUSTO Payer ID:[id number] (NAIC) Type:[facility] Address: [id number] ANTH ACCESS [facility] MEDICARE ADVANTAGE Care Teams Fire Inspector Relationship Specialty Start Date End Date Ashwin Alexis MD PCP - General Family Medicine 05/15/18 Modesta Deal MD [address] [place] [address] Medical Oncologist/Associate Professor Of Literature Hematology 06/21/20
== END 2024-12-26 13:58 | disposition home or self-care (01) ==
PROVIDERS: PCP Family Medicine; Visit Provider Family Medicine
DX: R41.0 Disorientation, unspecified (principal); R51.9 Headache, unspecified; V89.2XXA Person injured in unspecified motor-vehicle accident, traffic, initial encounter
CPT/HCPCS: 70450

== ENCOUNTER 2025-04-03 14:22 | Outpatient (CLI) | payer MEDICARE, SELFPAY ==
--- NOTE | ~2025-04-03 | XR_ITS ---
EXAMINATION: XR chest 2V, 04/03/2025 14:26 PHYSICAL DESIGN ENGINEER HISTORY: R05.9 - Cough, unspecified COMPARISON: No comparisons available. Technique: 2 views obtained. Findings: The lungs are clear, no effusion. No pneumothorax. Heart is normal size. Mediastinal and hilar contours are within normal limits. Bony thorax no acute abnormality. Impression: No acute cardiopulmonary abnormality. Reviewed, dictated and finalized at location P. ICAL DESIGN ENGINEER Impression: No acute cardiopulmonary abnormality.
== END 2025-04-03 14:23 | disposition home or self-care (01) ==
LOC: MICIMG 14:24
PROVIDERS: PCP Family Medicine
DX: R09.3 Abnormal sputum (principal)
CPT/HCPCS: 71046

== ENCOUNTER 2025-04-06 20:50 | Emergency (ER) | payer MEDICARE, SELFPAY ==
--- NOTE | ~2025-04-06 | XR_ITS ---
Examination: XR chest 2V Clinical History: CHEST PAIN , cold fro 4 weeks Comparison: 04/03/2025 Technique: PA and Lateral Findings: Cardiomediastinal silhouette normal size and configuration. Round airspace opacity right lower lobe. Hyperinflation. No acute bony abnormality. IMPRESSION: 1. New round focus airspace disease right lower lobe. Consistent with pneumonia. Recommend surveillance until resolution. Reviewed, dictated and finalized at location [facility]. [facility] IMPRESSION: 1. New round focus airspace disease right lower lobe. Consistent with pneumoni a. Recommend surveillance until resolution.
--- NOTE | 2025-04-06 20:51 | ECG_ITS ---
Test Date: 2025-04-06 20:54:50 Measurements Intervals Gordon Rate: 107 P: 67 MA: 183 QRS: 56 QRSD: 90 T: 46 QT: 320 QTc: 428 Interpretive Statements SINUS TACHYCARDIA LEFT ATRIAL ENLARGEMENT POSSIBLE RIGHT VENTRICULAR CONDUCTION DELAY MINIMAL Q WAVES- LATERAL LEADS ABNORMAL ECG No previous ECG available for comparison Electronically Signed On 04-07-2025 06:16:54 TIME CLOCK REPAIRER by Pawan Cabrera D.O.
--- OUTSIDE RECORDS SUMMARY | 2025-04-06 20:52 | XMS_ITS | Encounter Summary ---
Author Organization [facility] Address [address] [place] [address] Phone Care Team Providers Care Metal Box Maker Name Role Phone Ashwin Alexis MD Primary Care Provider [phone] Modesta Deal MD Unavailable [phone] Encounter Details Date Type Department Care Team (Latest Contact Info) Description 05/04/2022 Orders Only [facility] Scanning, Provider Social History Tobacco Use Types Packs/Day Years Used Date Smoking Tobacco: Never Smokeless Tobacco: Never Comments Unknown Sex and Gender Information Value Date Recorded Sex Assigned at Not on file Legal Sex Female 4:06 AM MANAGER HOSPITAL Gender Identity Not on file Sexual Orientation [...] on filedocumented in this encounter Care Teams Metal Box Maker Relationship Specialty Start Date End Date Ashwin Alexis MD PCP - General Family Medicine 05/15/18 Modesta Deal MD [address] [place] [address] Medical Oncologist/Airplane Designer Hematology 06/21/20 documented as of this encounter
--- OUTSIDE RECORDS SUMMARY | 2025-04-06 20:52 | XMS_ITS | Clinical Summary ---
Author Organization [facility] Address [address] [place] [address] Care Team Providers Care Hydraulic Operator Name Role Phone Ashwin Alexis MD Primary Care Provider [phone] Modesta Deal MD Unavailable [phone] Allergies Active Allergy Reactions Criticality Noted Date [...] once daily 30 capsule 11/27/19 24 Active Droxia 200 mg capsuleIndications: Essential thrombocythemia (HCC) Take 1 capsule by mouth once daily 30 capsule 04/04/20 25 Active hydroxyurea (HYDREA) 500 mg capsuleIndications: Essential thrombocytosis TAKE 1 CAPSULE BY MOUTH ONCE DAILY AT THE SAME TIME EACH DAY 30 capsule 04/04/20 25 Active hydroxyurea (HYDREA) 500 mg capsuleIndications: Essential thrombocytosis TAKE 1 CAPSULE BY MOUTH ONCE DAILY AT THE SAME TIME EACH DAY 30 capsule 01/08/20 25 025 Discontinued Droxia 200 mg capsuleIndications: Essential thrombocythemia (HCC) Take 1 capsule by mouth once daily 30 capsule 02/05/20 25 025 Discontinued hydroxyurea (HYDREA) 500 mg capsuleIndications: Essential thrombocytosis TAKE 1 CAPSULE BY MOUTH AT THE SAME TIME EACH DAY 30 capsule 03/10/20 25 025 Discontinued Active Problems Problem Noted Date Diagnosed Date Long-term use of high-risk medication 05/11/2018 Essential thrombocythemia 07/25/2016 Immunizations Immunization Administration Dates Next Due Flucelvax Influenza Quad 02/29/2020 Social History Tobacco Use Types Packs/Day Years Used Date Smoking Tobacco: Never Smokeless Tobacco: Never Tobacco Cessation:Counseling Given: Not Answered Comments Unknown Sex and Gender Information Value Date Recorded Sex Assigned at Not on file Legal Sex Female 4:06 AM MEDICAL BILLING REPRESENTATIVE Gender Identity Not on file Sexual Orientation [...] cm (5' 2) 04/11/2024 12:4 7 PM MEDICAL BILLING REPRESENTATIVE Body Mass Index 19.9 04/11/2024 12:47 PM MEDICAL BILLING REPRESENTATIVE Plan of Treatment Health Maintenance Due Date [...] 65+ 2023 Influenza Vaccine (#1) 2024 02/29/2020 Insurance [facility] MEDICARE ADVANTAGE [facility] [address] [facility] ANTH ACCESS [facility] MEDICARE ADVANTAGE Care Teams Hydraulic Operator Relationship Specialty Start Date End Date Ashwin Alexis MD PCP - General Family Medicine 05/15/18 Modesta Deal MD [address] [place] [address] Medical Oncologist/Blow Molding Machine Tender Hematology 06/21/20
--- OUTSIDE RECORDS SUMMARY | 2025-04-06 20:52 | XMS_ITS | Clinical Summary ---
Author Organization [facility] Address [address] [place] [id number] Phone Care Team Providers Care Ginner Name Role Phone Unavailable Primary Care Provider [...] Comments Blood Pressure 158/84 04/04/2016 12:01 AM UPPER DOUBLER Pulse 72 04/04/2016 12:01 AM UPPER DOUBLER Temperature 37.5 C (99.5 F) 04/04/2016 12:01 AM UPPER DOUBLER Respiratory Rate - - Oxygen Saturation - - Inhaled Oxygen Concentration - - Weight 51.7 kg (114 lb) 04/04/2016 12:01 AM UPPER DOUBLER Height 157.5 cm (5' 2) 04/04/2016 12:01 AM UPPER DOUBLER Body Mass Index 20.85 04/04/2016 12:01 AM UPPER DOUBLER Plan of Treatment Not on file
[2025-04-06 20:59] VITALS: BP 167/73; PULSE 106; RESP 20; TEMP 36.8; O2SAT 100
[2025-04-06 21:27] LABS: Hematocrit 31.7 % (37.0-47.0); Hemoglobin 10.7 g/dL (12.0-15.0); Immature Granulocyte Percent A 1.0 % (0-0.5); Lymphocytes Absolute Auto 0.70 K/mm3 (0.9-3.2); Mean Corpuscular HGB Conc 33.8 g/dl (32-36); Mean Corpuscular Hemoglobin 38.4 pg (26-34); Mean Corpuscular Volume 113.6 fl (80-100); Nucleated Red Blood Cells Absolute Auto 0.000 K/mm3 (0.0-0.012); Nucleated Red Blood Cells Perc 0.0 % (0.0-0.2); Platelet Count Result 444 k/mm3 (150-375); Red Blood Count 2.79 M/mm3 (4.2-5.4); White Blood Count 6.7 K/mm3 (4.5-10.0)
[2025-04-06 21:38] LABS: INR 1.1; Prothrombin Time 14.2 Seconds (11.1-14.7)
[2025-04-06 21:39] LABS: Partial Thromboplastin Time 33.7 Seconds (22.3-36.8)
[2025-04-06 21:46] LABS: Alanine Aminotransferase 15 U/L (6-35); Albumin Level 4.3 g/dL (3.5-5.1); Alkaline Phosphatase 67 U/L (38-126); Anion Gap 6 mmol/L (4-12); Aspartate Amino Transferase 28 U/L (14-36); Bilirubin,Total 0.3 mg/dL (0.2-1.3); Blood Urea Nitrogen 16 mg/dL (7-17); Calcium 9.4 mg/dL (8.4-10.2); Carbon Dioxide 26 mmol/L (22-30); Chloride 102 mmol/L (98-107); Estimated CRCL calculation 50 ml/min; Estimated Glomerular Filt Rate > 60; Glucose 208 mg/dL (65-110); Lipase 80 U/L (23-300); Potassium 3.5 mmol/L (3.4-5.0); Sodium 134 mmol/L (137-145); Total Protein 7.3 g/dL (6.3-8.2)
[2025-04-06 21:52] LABS: Troponin I < 0.012 ng/mL (0.000-0.034)
[2025-04-06] MEDS: DOXYCYCLINE IV 100 MG in SODIUM CHLORIDE 0.9% IV 100 ML IVPB (22:19)
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
== END 2025-04-06 23:55 | disposition home or self-care (01) ==
PROVIDERS: Emergency Provider Student in an Organized Health Care Education/Training Program; PCP Family Medicine
DX: J18.9 Pneumonia, unspecified organism (principal); R00.0 Tachycardia, unspecified; R94.31 Abnormal electrocardiogram [ECG] [EKG]
CPT/HCPCS: 36415; 71046; 80053; 83690; 84484; 85025; 85610; 85730; 93005; 96365; 99284